=== PATIENT | male | born 1975 | race Caucasian/White ===

== ENCOUNTER 2019-08-27 19:35 | Emergency (ER) | payer OTHER ==
[2019-08-27] MEDS ORDERED: HYDROcodone/ACETAMIN 5-325 MG* 1 TAB PO ONE (20:28)
--- NOTE | 2019-08-27 20:32 | ED ---
Adult Trauma - HPI Summary HPI Summary: 43 y/o male presented to [facility] after being hit in his right shoulder while playing hockey. Pt denies LOC. He feels pain in the back of his shoulder with no numbness or tingling, and cannot bend at the elbow without pain. 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 - History of Current Complaint Chief Complaint: EDShoulderClavicleInj Stated Complaint: RIGHT SHOULDER INJURY PER PT Time Seen by Provider: 08/27/19 20:16 Hx Obtained From: Patient Mechanism of Injury: Blunt Trauma Loss of Consciousness: no loss of consciousness Current Severity: Severe Pain Intensity: 10 Pain Scale Used: 0-10 Numeric Location: Other - shoulder Aggravating Factor(s): Movement Alleviating Factor(s): Rest Associated Signs & Symptoms: Positive: Negative, Other: - negative - numbness, tingling - Allergy/Home Medications Allergies/Adverse Reactions: Allergies Allergy/AdvReac Type Severity Reaction Status Date / Time No Known Allergies Allergy Verified 08/27/19 19:43 PMH/Surg Hx/FS Hx/Imm Hx Endocrine/Hematology History: Denies: Hx Diabetes, Hx Thyroid Disease Cardiovascular History: Denies: Hx Hypertension, Hx Pacemaker/ICD Respiratory History: Denies: Hx Asthma, Hx Chronic Obstructive Pulmonary Disease (COPD) GI History: Denies: Hx Ulcer History: Denies: Hx Renal Disease Musculoskeletal History: Denies: Hx Rheumatoid Arthritis, Hx Osteoporosis Sensory History: Denies: Hx Hearing Aid Psychiatric History: Denies: Hx Panic Disorder - Surgical History Surgery Procedure, Year, and Place: RIGHT shoulder surgery (Reverse Bankhart);. RIGHT knee ACL reconstruction; Infectious Disease History: No Infectious Disease History: Denies: Hx Hepatitis, Hx Human Immunodeficiency Virus (HIV), Traveled Outside the [place] in Last 30 Days - Social History Substance Use Type: Reports: None Review of Systems Positive: Other - shoulder pain Neurological: Other - negative LOC Negative: Paresthesia, Numbness All Other Systems Reviewed And Are Negative: Yes Physical Exam - Summary Physical Exam Summary: Constitutional: Well-developed, Well-nourished, Alert. (-) Distressed Skin: Warm, Dry HENT: Normocephalic; Atraumatic Eyes: Conjunctiva normal Neck: Musculoskeletal ROM normal neck. (-) JVD, (-) Stridor, (-) Tracheal deviation Cardio: Rhythm regular, rate normal, Heart sounds normal; Intact distal pulses; Radial pulses are 2+ and symmetric. (-) Murmur Pulmonary/Chest wall: Effort normal. (-) Respiratory distress, (-) Wheezes, (-) Rales Abd: Soft, (-) tenderness, (-) Distension, (-) Guarding, (-) Rebound Musculoskeletal: (-) Edema. Tenderness of AC joint with obvious deformity, skin intact. Lymph: (-) Cervical adenopathy Neuro: Alert, Oriented x3. Sensation intact in all dermatomes of right arm. Psych: Mood and affect Normal Triage Information Reviewed: Yes Vital Signs On Initial Exam: Initial Vitals Temp Pulse Resp BP Pulse Ox 98.1 F 77 16 138/78 100 08/27/19 19:41 08/27/19 19:41 08/27/19 19:41 08/27/19 19:41 08/27/19 19:41 Vital Signs Reviewed: Yes Procedures - Sedation Patient Received Moderate/Deep Sedation with Procedure: No Diagnostics - Vital Signs Vital Signs Temp Pulse Resp BP Pulse Ox 08/27/19 19:41 98.1 F 77 16 138/78 100 - Laboratory Lab Statement: Any lab studies that have been ordered have been reviewed, and results considered in the medical decision making process. - Radiology shoulder xray Radiology Interpretation Completed By: ED Physician Summary of Radiographic Findings: Complete AC joint separation with tinting of the skin. This x-ray was reviewed and interpreted by the ED physician pending official read. Adult Trauma Course/Dx - Course Course Of Treatment: Patient is here sustaining a right shoulder injury during hockey. Patient had an x-ray which showed a complete before meals joint separation. Patient was placed in a sling. Patient did have obvious deformity on exam but was not tenting the skin. Patient was given orthopedic surgery follow-up. Patient was discharged on tramadol. - Diagnoses Provider Diagnoses: Acromioclavicular joint separation Discharge ED - Sign-Out/Discharge Documenting (check all that apply): Patient Departure - dc - Discharge Plan Condition: Stable Disposition: HOME Prescriptions: traMADol TAB* [Ultram*] 50 mg PO Q8H PRN #12 tab MDD 150 mg PRN Reason: Pain - Severe Patient Education Materials: Acromioclavicular Separation (ED) Referrals: Xavier Miguel MD [Primary Care Provider] - Additional Instructions: PLEASE RETURN TO EMERGENCY DEPARTMENT FOR ANY NUMBNESS, TINGLING, SEVERE SHOULDER PAIN, OR OTHER CONCERNING SYMPTOMS. Please follow up with Dr. Alvarado this week. Take 600mg ibuprofen every 6 hours. You can add 1000mg of Tylenol every 6 hours as well. If that combination of medications is not working, please take your prescribed medication. - Billing Disposition and Condition Condition: STABLE Disposition: Home - Attestation Statements Document Initiated by August: Yes Documenting August: Rishabh Burrell Provider For Whom August is Documenting (Include Credential): Arcenio Gruber MD Scribe Attestation: Rishabh Foster, scribed for Arcenio Gruber MD on 08/27/19 at 2120. Scribe Documentation Reviewed: Yes Provider Attestation: The documentation as recorded by the Rishabh paulson accurately reflects the service I personally performed and the decisions made by , Arcenio Gruber MD Status of Scribe Document: Viewed
[2019-08-27 20:57] VITALS: BP 131/91
== END 2019-08-27 20:55 | disposition home or self-care (01) ==
LOC: ED 19:35
DX: S43.101A Unspecified dislocation of right acromioclavicular joint, initial encounter (principal); W50.0XXA Accidental hit or strike by another person, initial encounter; Y93.22 Activity, ice hockey; Y92.330 Ice skating rink (indoor) (outdoor) as the place of occurrence of the external cause
CPT/HCPCS: 99282